=== PATIENT | female | born 1940 | race Caucasian/White ===

== ENCOUNTER 2019-11-29 12:21 | Emergency (ER) | payer MEDICARE ==
[~2019-11-29] VITALS: Ht 157.5 cm; Wt 81.0 kg
[2019-11-29] MEDS ORDERED: DIPH,PERTUSS(ACELL),TET VAC/PF 0.5 ML SYRINGE. VAX IM ONE (13:00)
--- NOTE | 2019-11-29 13:09 | RAD ---
EXAM: Left ankle, 3 views. HISTORY: Twisting injury. COMPARISON: None. FINDINGS: 3 views of the left ankle are obtained. There is internal fixation of a distal fibular fracture in anatomic alignment. This appears to be healed. No acute fracture is seen. The ankle mortise is intact. No osteochondral lesion is seen. There is a small plantar spur. There is enthesopathy at the Achilles tendon insertion. IMPRESSION: No acute osseous finding. Electronically signed by: Mine Hale MD (11/29/2019 1:06 PM) [facility]
--- NOTE | 2019-11-29 13:15 | PHYS DOC ---
Past History Past Medical History: Hypertension Past Surgical History: Knee Replacement Alcohol Use: None General Adult EDM: Chief Complaint: FOOT INJURY PAIN HPI: HPI: Patient is a 79-year-old female who presented to ER today for evaluation of left ankle pain. Patient has just problem of her left ankle since July, she has been evaluated by her family doctor, went through physical therapy. Patient never had MRI of her left ankle done. Her doctor says she might have some p roblems with her Achilles tendon. Patient says there is always an indentation at the Achilles tendon area. Patient was walking this morning, stepped into a hole, fell twisting her left ankle so she started having more pain so she came here for evaluation. Patient denies any pain in her left knee. Patient also hit the palm of her right hand on the ground have some abrasion there. Patient denies any wrist pain, denies any pain with her wrist whenever she moves. Patient is not up-to-date on tetanus status. Review of Systems: Review of Systems: Constitutional: Denies fever or chills Eyes: Denies change in visual acuity HENT: Denies nasal congestion or sore throat Respiratory: Denies cough or shortness of breath Cardiovascular: Denies chest pain or edema GI: Denies abdominal pain, nausea, vomiting, bloody stools or diarrhea : Denies dysuria Musculoskeletal: Denies back pain, positive for left ankle pain. Integument: Denies rash , positive for skin abrasion on right hand. Neurologic: Denies headache, focal weakness or sensory changes Endocrine: Denies polyuria or polydipsia Lymphatic: Denies swollen glands Psychiatric: Denies depression or anxiety Heart Score: Risk Factors: Risk Factors: DM, Current or recent (<one month) smoker, HTN, HLP, family history of CAD, obesity. Risk Scores: Score 0 - 3: 2.5% MACE over next 6 weeks - Discharge Home Score 4 - 6: 20.3% MACE over next 6 weeks - Admit for Clinical Observation Score 7 - 10: 72.7% MACE over next 6 weeks - Early Invasive Strategies Current Medications: Current Meds: Current Medications Medications (Trade) Dose Ordered Sig/Jin Start Time Stop Time Status Last Admin Dose Admin Diphtheria/ Pertussis/Tetanus Vacc (ADACEL TDap SYRINGE) 0.5 ml ONCE ONCE 11/29/19 13:00 5/9/20 13:01 DC Allergies: Allergies: Allergies Coded Allergies Type Severity Reaction Last Updated Verified No Known Drug Allergies 11/29/19 No Physical Exam: PE: Constitutional: Well developed, well nourished, no acute distress, non-toxic appearance. [] HENT: Normocephalic, atraumatic, bilateral external ears normal, oropharynx moist, no oral exudates, nose normal. [] Eyes: PERRLA, EOMI, conjunctiva normal, no discharge. [] Neck: Normal range of motion, no tenderness, supple, no stridor. [] Cardiovascular:Heart rate regular rhythm, no murmur [] Lungs & Thorax: Bilateral breath sounds clear to auscultation [] Abdomen: Bowel sounds normal, soft, no tenderness, no masses, no pulsatile masses. [] Skin: Warm, dry, superficial skin abrasion on right palm, no bleeding. Back: No tenderness, no CVA tenderness. [] Extremities: patient can flex or extend left ankle without any problem, there is an indentation the distal part of left valerie tendon, patient said she has have that indentation since July of this year. No swelling. Neurologic: Alert and oriented X 3, normal motor function, normal sensory function, no focal deficits noted. [] Psychologic: Affect normal, judgement normal, mood normal. [] Current Patient Data: Vital Signs: Vital Signs Date Time Temp Pulse Resp B/P (MAP) Pulse Ox O2 Delivery O2 Flow Rate FiO2 11/29/19 12:40 98.4 72 18 191/84 (119) 98 Room Air EKG: EKG: [] Radiology/Procedures: Radiology/Procedures: [][address] [address] IMAGING REPORT Signed PATIENT: PRASAD CASEYUNT: [id number] : 1940 LOCATION: ER AGE: 79 SEX: F EXAM STATUS: REG ER ORD. PHYSICIAN: ARETHA STEVENS DO REASON: TWISTED LEFT ANKLE WHEN SHE STEPPED INTO A HOLE PROCEDURE: ANKLE LEFT 3V EXAM: Left ankle, 3 views. HISTORY: Twisting injury. COMPARISON: None. FINDINGS: 3 views of the left ankle are obtained. There is internal fixation of a distal fibular fracture in anatomic alignment. This appears to be healed. No acute fracture is seen. The ankle mortise is intact. No osteochondral lesion is seen. There is a small plantar spur. There is enthesopathy at the Achilles tendon insertion. IMPRESSION: No acute osseous finding. Electronically signed by: Mine Franklin MD (11/29/2019 1:06 PM) [facility] DICTATED AND SIGNED BY: MINE FRANKLIN MD DATE: 11/29/19 7730 CC: IDA ENGLAND MD; ARETHA STEVENS DO ~ Course & Med Decision Making: Course & Med Decision Making Pertinent Labs and Imaging studies reviewed. (See chart for details) Patient did not want to have x-ray done of her right wrist. Patient was instructed follow-up with her family doctor for outpatient evaluation of left ankle with MRI. Dragon Disclaimer: Dragon Disclaimer: This electronic medical record was generated, in whole or in part, using a voice recognition dictation system. Departure Departure: Impression: Primary Impression: Left ankle sprain Disposition: 01 HOME, SELF-CARE Condition: STABLE Referrals: IDA ENGLAND MD (PCP) PLEASE FOLLOW UP WITH YOUR DOCTOR FOR OUTPATIENT EVALUATION WITH MRI OF YOUR LEFT ANKLE. Patient Instructions: Ankle Sprain, Acute, with Phase [facility] ARETHA STEVENS DO November 29, 2019 13:15
[2019-11-29] MEDS ORDERED: BACITRACIN ZINC TOPICAL OINT PACKET. TP ONE (13:30)
[2019-11-29 13:31] VITALS: BP 168/98
== END 2019-11-29 13:30 | disposition home or self-care (01) ==
LOC: ER 12:21
DX: S93.402A Sprain of unspecified ligament of left ankle, initial encounter (principal); S60.511A Abrasion of right hand, initial encounter; I10 Essential (primary) hypertension; W17.2XXA Fall into hole, initial encounter; Y93.01 Activity, walking, marching and hiking; Y92.89 Other specified places as the place of occurrence of the external cause; Y99.8 Other external cause status
CPT/HCPCS: 73610; 90471; 90715; 99283; 99284

== ENCOUNTER → 2021-05-23 | Outpatient (CLI) | payer MEDICARE ==
--- NOTE | 2021-05-23 15:53 | RAD ---
EXAM: XR KNEE_RT 1-2 VIEWS, XR KNEE_AP BILAT STANDING 05/23/2021 1:25 PM CLINICAL INDICATION: Right knee pain COMPARISON: Right knee radiograph 04/12/2021 TECHNIQUE: Standing AP view of the bilateral knees. 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 No periprosthetic lucency or fracture. Soft tissue gas has resolved. There is a persistent joint effusion and mild soft tissue swelling. A left total knee prosthesis is also unchanged. IMPRESSION: 1. Unchanged right total knee prosthesis. 2. Postoperative soft tissue gas has resolved. There is a persistent joint effusion and soft tissue s welling. Electronically signed by: Kayla Shaw MD (05/23/2021 3:51 PM) [id number]
== END ==
LOC: RAD 13:19
PROVIDERS: ATTEND Physician Assistant
DX: M25.462 Effusion, left knee (principal); M25.461 Effusion, right knee; M79.89 Other specified soft tissue disorders; Z96.651 Presence of right artificial knee joint
CPT/HCPCS: 73560; 73565